=== PATIENT | male | born 1975 | race Caucasian/White ===

== ENCOUNTER 2016-12-21 21:56 | Emergency (ER) | payer MEDICAID ==
[~2016-12-21] VITALS: Ht 188 cm; Wt 107.5 kg
[2016-12-21] MEDS ORDERED: ASPIRIN 81 MG TABLET CHEW ONE (22:20)
[2016-12-21] MEDS ORDERED: NITROGLYCERIN SINGLE TAB 0.4 MG SL ONE (22:20)
[2016-12-21] MEDS ORDERED: ASPIRIN 81 MG TABLET CHEW PO ONE (22:30)
[2016-12-21] MEDS ORDERED: NITROGLYCERIN SINGLE TAB 0.4 MG SL PRN (22:30)
[2016-12-21 22:34] LABS: HEMATOCRIT 45.6 % (39.2-51.8); HEMOGLOBIN 15.5 g/dL (13.7-18.0); WHITE BLOOD COUNT 8.7 x10^3/uL (3.4-10)
[2016-12-21 22:44] LABS: ASPARTATE AMINO TRANSFERASE 25 U/L (15-37); BLOOD UREA NITROGEN 20 mg/dL (7-18)
[2016-12-21 22:50] LABS: IS PT STATUS REG ER OR PRE ER? YES
[2016-12-22 03:11] LABS: IS PT STATUS REG ER OR PRE ER? YES
[2016-12-22 04:02] VITALS: BP 111/84
== END 2016-12-22 04:04 | disposition home or self-care (01) ==
LOC: ED 23:59
DX: R07.2 Precordial pain (principal); R11.0 Nausea; F17.200 Nicotine dependence, unspecified, uncomplicated
CPT/HCPCS: 36415; 71010; 80053; 84484; 85025; 93005; 99285

== ENCOUNTER 2017-02-24 15:34 | Emergency (ER) | payer MEDICAID ==
[~2017-02-24] VITALS: Ht 188 cm; Wt 110.5 kg
[2017-02-24] MEDS ORDERED: OXYcodone/APAP 5/325MG TABLET ONE (16:17)
[2017-02-24] MEDS ORDERED: KETOROLAC 30 MG/1 ML ONE (16:17)
[2017-02-24] MEDS ORDERED: OXYcodone/APAP 5/325MG TABLET PO ONE (16:30)
[2017-02-24] MEDS ORDERED: KETOROLAC 60 MG/2 ML IM ONE (16:30)
[2017-02-24] MEDS ORDERED: KETOROLAC 30 MG/1 ML IM ONE (16:30)
[2017-02-24 16:36] VITALS: BP 149/91
== END 2017-02-24 16:39 | disposition home or self-care (01) ==
LOC: ED 16:25
DX: S46.012A Strain of muscle(s) and tendon(s) of the rotator cuff of left shoulder, initial encounter (principal); M54.5 Low back pain; G89.29 Other chronic pain; X50.3XXA Overexertion from repetitive movements, initial encounter; Y93.G3 Activity, cooking and baking; Y99.0 Civilian activity done for income or pay; Y92.69 Other specified industrial and construction area as the place of occurrence of the external cause
CPT/HCPCS: 96372; 99283; J1885

== ENCOUNTER 2017-07-29 06:52 | Inpatient (IN) | payer MEDICAID ==
[~2017-07-29] VITALS: Ht 188 cm; Wt 109.9 kg
[~2017-07-29 06:52] MED LIST: METF500T4 PO
[2017-07-29] MEDS ORDERED: LORazepam 2 MG/ML, 1ML ONE ×3 (06:59→07:22)
[2017-07-29] MEDS ORDERED: LORazepam 2 MG/ML, 1ML IVPush ONE (07:00)
[2017-07-29] MEDS ORDERED: SODIUM CHLORIDE 0.9% 1,000ML IVBOLUS ONE ×2 (07:00→08:30)
[2017-07-29] MEDS ORDERED: MIDAZOLAM 1 MG/ML, 2ML ONE (07:04)
[2017-07-29 07:22] LABS: BASOPHILS # (AUTO) 0.07 x10^3/uL (0-0.1); BASOPHILS % (AUTO) 1 % (0-1); EOSINOPHILS # (AUTO) 0.04 x10^3/uL (0-0.4); EOSINOPHILS % (AUTO) 0 % (1-7); LYMPHOCYTES # (AUTO) 2.02 x10^3/uL (1-3.4); LYMPHOCYTES % (AUTO) 18 % (22-44); MD NO; MEAN CORPUSCULAR HGB CONC 34.3 g/dL (33.2-36.2); MEAN CORPUSCULAR VOLUME 84.4 fL (81-97); MEAN PLATELET VOLUME 8.6 fL (7.4-10.4); MONOCYTES # (AUTO) 0.86 x10^3/uL (0.2-0.8); MONOCYTES % (AUTO) 8 % (2-9); NEUTROPHILS # (AUTO) 8.47 x10^3/uL (1.8-6.8); NEUTROPHILS % (AUTO) 74 % (42-75); PH, VENOUS 7.402 pH (7.320-7.420); PLATELET COUNT 308 x10^3/uL (130-400); RED BLOOD COUNT 5.77 x10^6/uL (4.38-5.82); RED CELL DISTRIBUTION WIDTH 13.3 % (9.4-14.8)
[2017-07-29] MEDS ORDERED: MIDAZOLAM 1 MG/ML, 5ML IM ONE (07:30)
[2017-07-29] MEDS ORDERED: LORazepam 2 MG/ML, 1ML IVPush PRN ×3 (07:30→18:30)
[2017-07-29 07:33] LABS: ALANINE AMINOTRANSFERASE 54 U/L (12-78); ALBUMIN 4.1 g/dL (3.4-5.0); ANION GAP 14 mmol/L (5-15); CALCIUM 9.1 mg/dL (8.5-10.1); CHLORIDE 107 mmol/L (98-107); CREATININE 1.37 mg/dL (0.7-1.3)
[2017-07-29 07:37] LABS: ALKALINE PHOSPHATASE 77 U/L (45-117); BILIRUBIN,TOTAL 0.8 mg/dL (0.2-1.0); CREATINE KINASE, TOTAL 525 U/L (39-308); TOTAL PROTEIN 7.9 g/dL (6.4-8.2)
[2017-07-29 07:41] LABS: ACETAMINOPHEN < 2 mcg/mL (10-30)
[2017-07-29] MEDS ORDERED: ACETAMINOPHEN 650 MG SUPP ONE (07:56)
[2017-07-29] MEDS ORDERED: SUCCINYLCHOLINE 20 MG/ML, 10ML IVPush ONE (08:00)
[2017-07-29] MEDS: PROPOFOL 100 ML IV PRN ×4 (08:00→16:45)
[2017-07-29] MEDS ORDERED: MIDAZOLAM 1 MG/ML, 5ML IVPush ONE (08:00)
[2017-07-29] MEDS ORDERED: ACETAMINOPHEN 650 MG SUPP PR ONE (08:00)
[2017-07-29 08:40] LABS: AMPHETAMINE SCREEN, URINE Positive (Negative); BARBITURATE SCREEN, URINE Negative (Negative); BENZODIAZEPINE SCREEN, URINE Negative (Negative); CANNABINOID SCREEN, URINE Positive (Negative); METHADONE SCREEN, URINE Negative (Negative); OPIATE SCREEN, URINE Negative (Negative)
[2017-07-29 08:46] LABS: COCAINE SCREEN, URINE Negative (Negative)
[2017-07-29 09:28] VITALS: BP 109/59
[2017-07-29] MEDS ORDERED: PROPOFOL 100 ML IV PRN (10:19)
[2017-07-29] MEDS ORDERED: LIDOCAINE-MPF 1%, 2ML ENDO PRN (10:30)
[2017-07-29] MEDS ORDERED: PHARMACY MAY ADJ FOR RENAL FX MC SCH (10:30)
[2017-07-29] MEDS ORDERED: DOCUSATE 100 MG CAPSULE PO PRN (11:00)
[2017-07-29] MEDS ORDERED: ACETAMINOPHEN 325 MG TABLET PO PRN (11:00)
[2017-07-29] MEDS ORDERED: LACTATED RINGERS 1,000 ML IV SCH (11:00)
[2017-07-29] MEDS: INSULIN LISPRO 100 UNITS/ML, PEN SQ-INSULIN SCH ×2 (11:00→16:44)
[2017-07-29] MEDS ORDERED: POLYETHYLENE GLYCOL 17 GM PACKET PO PRN (11:00)
[2017-07-29] MEDS ORDERED: ONDANSETRON 2MG/ML, 2ML IVPush PRN (11:00)
[2017-07-29] MEDS ORDERED: THIAMINE 100 MG, MVI ADULT 10 ML, FOLIC ACID 1 MG in D5%-0.9% NACL 1,000 ML IV SCH (11:00)
[2017-07-29] MEDS ORDERED: hydrALAzine 20 MG/ML, 1ML IVPush PRN (11:00)
[2017-07-29] MEDS ORDERED: BISACODYL 10 MG SUPP PR PRN (11:00)
[2017-07-29] MEDS ORDERED: FAMOTIDINE 20 MG/2 ML IVPush SCH (11:00)
[2017-07-29 11:01] LABS: TROPONIN I < 0.015 ng/mL (0.000-0.045)
[2017-07-29] MEDS ORDERED: MIDAZOLAM 1 MG/ML, 5ML ONE (12:00)
[2017-07-29] MEDS ORDERED: SUCCINYLCHOLINE 20 MG/ML, 10ML ONE (12:00)
[2017-07-29] MEDS ORDERED: ENOXAPARIN 40 MG/0.4 ML SQ SCH (17:30)
== END 2017-07-29 18:38 | disposition left against medical advice (07) | DRG 917 ==
LOC: ED 07:52 → EDIP 07:59 → CCU 09:49
PROVIDERS: ADMIT Hospitalist; ATTEND Hospitalist
PROC: 0BH17EZ Insertion of Endotracheal Airway into Trachea, Via Natural or Artificial Opening (ICD-10-PCS; principal; 2017-07-29)
PROC: 5A1935Z Respiratory Ventilation, Less than 24 Consecutive Hours (ICD-10-PCS; 2017-07-29)
DX: T43.621A Poisoning by amphetamines, accidental (unintentional), initial encounter (principal); G93.41 Metabolic encephalopathy; J96.00 Acute respiratory failure, unspecified whether with hypoxia or hypercapnia; Z99.11 Dependence on respirator [ventilator] status; N17.9 Acute kidney failure, unspecified; E11.9 Type 2 diabetes mellitus without complications; J32.0 Chronic maxillary sinusitis; B19.20 Unspecified viral hepatitis C without hepatic coma; E86.0 Dehydration; F12.90 Cannabis use, unspecified, uncomplicated; F15.129 Other stimulant abuse with intoxication, unspecified; F17.200 Nicotine dependence, unspecified, uncomplicated; I10 Essential (primary) hypertension; K02.9 Dental caries, unspecified; Y92.89 Other specified places as the place of occurrence of the external cause
CPT/HCPCS: 31500; 36415; 36600; 70450; 71045; 80053; 80307; 80329; 82550; 82803; 82962; 84478; 84484; 85025; 86704; 86706; 86708; 86803; 87070; 87081; 87205; 87340; 87806; 93005; 94002; 96361; 96374; 96375; J2250; J2704; J3411; J7042; G0475; G0480; J0330; J2060; J7030; S0028

== ENCOUNTER 2017-08-26 22:28 | Emergency (ER) | payer MEDICAID ==
[~2017-08-26] VITALS: Ht 185.4 cm; Wt 114.0 kg
[2017-08-26 22:32] VITALS: BP 136/82
[2017-08-26] MEDS ORDERED: KETOROLAC 30 MG/1 ML IM ONE (23:00)
[2017-08-26] MEDS ORDERED: METHOCARBAMOL 750 MG TABLET PO ONE (23:00)
[2017-08-26] MEDS ORDERED: KETOROLAC 30 MG/1 ML ONE (23:05)
[2017-08-26] MEDS ORDERED: METHOCARBAMOL 750 MG TABLET ONE (23:05)
[2017-08-27 00:22] LABS: MICROSCOPIC INDICATED
[2017-08-27 00:23] LABS: CULTURE INDICATED? NO
== END 2017-08-27 00:42 | disposition home or self-care (01) ==
LOC: ED 08-27 00:35
DX: S29.011A Strain of muscle and tendon of front wall of thorax, initial encounter (principal); E11.9 Type 2 diabetes mellitus without complications; F17.200 Nicotine dependence, unspecified, uncomplicated; X58.XXXA Exposure to other specified factors, initial encounter; Y93.89 Activity, other specified; Y92.89 Other specified places as the place of occurrence of the external cause; Y99.8 Other external cause status
CPT/HCPCS: 81001; 96372; 99283; J1885

== ENCOUNTER 2018-07-30 18:51 | Observation (INO) | payer SELFPAY ==
[~2018-07-30] VITALS: Ht 188 cm; Wt 118.0 kg
[~2018-07-30 18:51] MED LIST changes: +METF500T17 PO; -METF500T4 PO
--- NOTE | 2018-07-30 19:06 | NUR ---
assessment made. chart up for MD to see.
--- NOTE | 2018-07-30 19:24 | NUR ---
PA at bedside.
[2018-07-30] MEDS ORDERED: LORazepam 1MG TABLET ONE ×2 (19:25→20:35)
[2018-07-30] MEDS ORDERED: LORazepam 1MG TABLET PO ONE ×2 (19:30→21:00)
--- NOTE | 2018-07-30 19:31 | NUR ---
patient medicated for agitation. blood drawn.
[2018-07-30 19:41] LABS: BASOPHILS # (AUTO) 0.06 x10^3/uL (0-0.1); BASOPHILS % (AUTO) 1 % (0-1); EOSINOPHILS % (AUTO) 1 % (1-7); LYMPHOCYTES # (AUTO) 2.32 x10^3/uL (1-3.4); LYMPHOCYTES % (AUTO) 19 % (22-44); MD NO; MEAN CORPUSCULAR HEMOGLOBIN 29.8 pg (27.5-34.5); MEAN CORPUSCULAR HGB CONC 34.8 g/dL (33.2-36.2); MEAN CORPUSCULAR VOLUME 85.6 fL (81-97); MEAN PLATELET VOLUME 8.4 fL (7.4-10.4); MONOCYTES # (AUTO) 1.04 x10^3/uL (0.2-0.8); MONOCYTES % (AUTO) 9 % (2-9); NEUTROPHILS # (AUTO) 8.61 x10^3/uL (1.8-6.8); NEUTROPHILS % (AUTO) 71 % (42-75); PLATELET COUNT 213 x10^3/uL (130-400); RED BLOOD COUNT 5.54 x10^6/uL (4.38-5.82); RED CELL DISTRIBUTION WIDTH 13.2 % (9.4-14.8)
[2018-07-30 19:51] LABS: ALANINE AMINOTRANSFERASE 46 U/L (12-78); ANION GAP 10 mmol/L (5-15); CALCIUM 8.8 mg/dL (8.5-10.1); CHLORIDE 105 mmol/L (98-107); CREATININE 1.15 mg/dL (0.7-1.3); SALICYLATE LEVEL 1.9 mg/dL (2.8-20.0)
--- NOTE | 2018-07-30 19:51 | NUR ---
URINE SENT TO LAB.
[2018-07-30 19:54] LABS: ACETAMINOPHEN < 2 mcg/mL (10-30); ALKALINE PHOSPHATASE 86 U/L (45-117); BILIRUBIN,TOTAL 0.7 mg/dL (0.2-1.0); TOTAL PROTEIN 7.3 g/dL (6.4-8.2)
[2018-07-30 20:08] LABS: AMPHETAMINE SCREEN, URINE Positive (Negative); BARBITURATE SCREEN, URINE Negative (Negative); BENZODIAZEPINE SCREEN, URINE Positive (Negative); CANNABINOID SCREEN, URINE Positive (Negative); COCAINE SCREEN, URINE Negative (Negative); METHADONE SCREEN, URINE Negative (Negative); OPIATE SCREEN, URINE Negative (Negative)
--- NOTE | 2018-07-30 20:29 | NUR ---
PA at bedside for re-check
[2018-07-30] MEDS ORDERED: IBUPROFEN 200 MG TABLET PO ONE (20:30)
[2018-07-30] MEDS ORDERED: POTASSIUM CHLORIDE 20 MEQ TAB.ER.PRT PO ONE (20:30)
[2018-07-30] MEDS ORDERED: IBUPROFEN 800 MG TABLET ONE (20:34)
[2018-07-30] MEDS ORDERED: POTASSIUM CHLORIDE 20 MEQ TAB.ER.PRT ONE (20:34)
--- NOTE | 2018-07-30 20:45 | NUR ---
patient re-medicated for agitation. Potassium given.
--- NOTE | 2018-07-30 21:51 | NUR ---
re-evaluation done. patient for admit.
--- NOTE | 2018-07-30 22:41 | NUR ---
patient sleeping/ snoring at this time. awaiting bed assignment.
--- NOTE | 2018-07-30 23:05 | NUR ---
PA hospitalist at bedside. unable to assess, patient sleeping / snoring hard. VSS.
--- NOTE | 2018-07-30 23:18 | NUR ---
report to KEYANNA Ambrosio
[2018-07-31 00:05] VITALS: BP 109/55
[2018-07-31 04:00] VITALS: BP 119/71
[2018-07-31] MEDS ORDERED: ONDANSETRON 2MG/ML, 2ML IVPush PRN (06:00)
[2018-07-31] MEDS ORDERED: LORazepam 1MG TABLET PO PRN (06:00)
[2018-07-31 07:57] VITALS: BP 96/53
[2018-07-31 08:19] LABS: ANION GAP 6 mmol/L (5-15); CALCIUM 8.7 mg/dL (8.5-10.1); CHLORIDE 108 mmol/L (98-107); CREATININE 0.84 mg/dL (0.7-1.3)
[2018-07-31 08:29] LABS: BASOPHILS # (AUTO) 0.04 x10^3/uL (0-0.1); BASOPHILS % (AUTO) 1 % (0-1); EOSINOPHILS % (AUTO) 3 % (1-7); HEMOGRAM NOTE RECHECKED; LYMPHOCYTES # (AUTO) 1.83 x10^3/uL (1-3.4); LYMPHOCYTES % (AUTO) 31 % (22-44); MD NO; MEAN CORPUSCULAR HEMOGLOBIN 29.5 pg (27.5-34.5); MEAN CORPUSCULAR VOLUME 86.6 fL (81-97); MEAN PLATELET VOLUME 8.7 fL (7.4-10.4); MONOCYTES # (AUTO) 0.68 x10^3/uL (0.2-0.8); MONOCYTES % (AUTO) 12 % (2-9); NEUTROPHILS # (AUTO) 3.19 x10^3/uL (1.8-6.8); NEUTROPHILS % (AUTO) 54 % (42-75); PLATELET COUNT 197 x10^3/uL (130-400); RED BLOOD COUNT 5.63 x10^6/uL (4.38-5.82); RED CELL DISTRIBUTION WIDTH 13.4 % (9.4-14.8)
[2018-07-31] MEDS ORDERED: POTASSIUM CHLORIDE 20 MEQ in SODIUM CHLORIDE 0.9% 250 ML IV ONE (10:00)
[2018-07-31] MEDS ORDERED: POTASSIUM CHLORIDE 10% 40 MEQ/30 ML UDC PO ONE (10:00)
[2018-07-31 13:11] LABS: HEMOGLOBIN A1C 5.6 % (4.2-6.3)
[2018-07-31 15:53] VITALS: BP 107/58
== END 2018-07-31 17:20 | disposition home or self-care (01) ==
LOC: ED 21:58 → INTOOBSV 22:09 → EDIP 22:09 → CCU 23:57 → 4NOR 07-31
PROVIDERS: ADMIT Family Medicine; ATTEND Family Medicine
DX: F15.121 Other stimulant abuse with intoxication delirium (principal); G92 Toxic encephalopathy; E11.9 Type 2 diabetes mellitus without complications; E87.6 Hypokalemia; F10.10 Alcohol abuse, uncomplicated; F15.129 Other stimulant abuse with intoxication, unspecified; F15.159 Other stimulant abuse with stimulant-induced psychotic disorder, unspecified; F17.200 Nicotine dependence, unspecified, uncomplicated; F32.9 Major depressive disorder, single episode, unspecified; F41.9 Anxiety disorder, unspecified; R41.0 Disorientation, unspecified
CPT/HCPCS: 36415; 80048; 80053; 80307; 80329; 83036; 83735; 85025; 95816; 99284; G0378; G0480